=== PATIENT | female | born 1955 | race Caucasian/White ===

== ENCOUNTER → 2023-04-16 08:08 | Outpatient (BNVA) | payer MEDICARE, SELFPAY | PROVIDERS: Family Provider Family Medicine; PCP Nurse Practitioner; Visit Provider Specialist | DX: M67.441 Ganglion, right hand (principal) | CPT/HCPCS: 73130; 99214 ==

== ENCOUNTER → 2023-10-02 14:46 | Outpatient (BNVA) | payer MEDICARE, SELFPAY | PROVIDERS: Family Provider Family Medicine; PCP Nurse Practitioner Family; Referring Provider Nurse Practitioner Family; Visit Provider Nurse Practitioner Family | DX: Z85.828 Personal history of other malignant neoplasm of skin (principal); M71.342 Other bursal cyst, left hand; L82.1 Other seborrheic keratosis; L57.8 Other skin changes due to chronic exposure to nonionizing radiation; L81.4 Other melanin hyperpigmentation; L57.0 Actinic keratosis; L91.8 Other hypertrophic disorders of the skin | CPT/HCPCS: 10060; 11900; 17000; 99203 ==

== ENCOUNTER → 2023-12-04 08:02 | Outpatient (BNVA) | payer MEDICARE, SELFPAY | PROVIDERS: Family Provider Family Medicine; PCP Nurse Practitioner Family; Visit Provider Nurse Practitioner Family | DX: M71.342 Other bursal cyst, left hand (principal); Z85.828 Personal history of other malignant neoplasm of skin; L82.1 Other seborrheic keratosis; L57.8 Other skin changes due to chronic exposure to nonionizing radiation; L81.4 Other melanin hyperpigmentation; L57.0 Actinic keratosis; L91.8 Other hypertrophic disorders of the skin | CPT/HCPCS: 10060; 11900; 17000; 99213 ==

== ENCOUNTER → 2024-04-12 08:24 | Outpatient (BNVA) | payer MEDICARE, SELFPAY | PROVIDERS: Family Provider Family Medicine; PCP Nurse Practitioner Family; Visit Provider Nurse Practitioner Family | DX: L82.1 Other seborrheic keratosis (principal); L57.8 Other skin changes due to chronic exposure to nonionizing radiation; L81.4 Other melanin hyperpigmentation; L91.8 Other hypertrophic disorders of the skin; L57.0 Actinic keratosis; Z85.828 Personal history of other malignant neoplasm of skin | CPT/HCPCS: 17000; 99213 ==

== ENCOUNTER → 2024-06-16 08:11 | Outpatient (BNVA) | payer MEDICARE, SELFPAY | PROVIDERS: Family Provider Family Medicine; PCP Nurse Practitioner Family; Visit Provider Podiatrist Foot & Ankle Surgery | DX: M76.62 Achilles tendinitis, left leg; M92.62 Juvenile osteochondrosis of tarsus, left ankle | CPT/HCPCS: 73630; 99203 ==

== ENCOUNTER → 2024-09-15 09:30 | Outpatient (BNVA) | payer MEDICARE, SELFPAY | PROVIDERS: Family Provider Family Medicine; PCP Nurse Practitioner Family; Visit Provider Podiatrist Foot & Ankle Surgery | DX: M79.672 Pain in left foot (principal); M76.62 Achilles tendinitis, left leg; M92.62 Juvenile osteochondrosis of tarsus, left ankle | CPT/HCPCS: 99213 ==

== ENCOUNTER → 2024-12-28 12:58 | Outpatient (BNVA) | payer MEDICARE, SELFPAY | PROVIDERS: Family Provider Family Medicine; PCP Nurse Practitioner Family; Visit Provider Nurse Practitioner Family | DX: L60.8 Other nail disorders (principal); Z08 Encounter for follow-up examination after completed treatment for malignant neoplasm; Z85.858 Personal history of malignant neoplasm of other endocrine glands; L82.0 Inflamed seborrheic keratosis; D48.5 Neoplasm of uncertain behavior of skin | CPT/HCPCS: 17110; 69100; 99213 ==

== ENCOUNTER → 2025-04-18 10:52 | Outpatient (BNVA) | payer MEDICARE, SELFPAY | PROVIDERS: Family Provider Family Medicine; PCP Nurse Practitioner Family; Visit Provider Nurse Practitioner Family | DX: L81.4 Other melanin hyperpigmentation (principal); L57.8 Other skin changes due to chronic exposure to nonionizing radiation; L23.9 Allergic contact dermatitis, unspecified cause; L85.8 Other specified epidermal thickening; Z08 Encounter for follow-up examination after completed treatment for malignant neoplasm; Z85.828 Personal history of other malignant neoplasm of skin; L82.0 Inflamed seborrheic keratosis; R20.8 Other disturbances of skin sensation; L29.89 Other pruritus; R58 Hemorrhage, not elsewhere classified; Z78.9 Other specified health status; L57.0 Actinic keratosis | CPT/HCPCS: 17000; 17110; 99213 ==